=== PATIENT | male | born 1970 | race Caucasian/White ===

== ENCOUNTER 2022-08-30 13:15 | Emergency (ER) | payer OTHER ==
[2022-08-30] MEDS ORDERED: Iopamidol 612 MG/ML 100 ML Bottle IV ONE (14:50)
[2022-09-24 11:00] LABS: ANION GAP 8.7 meq/L (7-15); CHLORIDE,CL 101 mmol/L (98-107); ESTIMATED GFR 93 mL/min (>=60); SODIUM,NA 139 mmol/L (136-145)
== END 2022-08-30 15:20 | disposition home or self-care (01) ==
LOC: LL.ED 13:15
DX: H93.8X1 Other specified disorders of right ear (principal); R21 Rash and other nonspecific skin eruption
CPT/HCPCS: 36415; 70491; 80053; 83735; 85025; 99283; 99284; Q9967

== ENCOUNTER 2023-03-18 10:17 | Emergency (ER) | payer MEDICARE, OTHER ==
[2023-03-18] MEDS ORDERED: Lidocaine 2% 5 ML SDV INJECT ONE ×2 (10:26→10:41)
[2023-03-18] MEDS ORDERED: Ondansetron 4 MG Tab.DIS PO ONE (10:31)
[2023-03-18] MEDS ORDERED: Bacitracin Oint 1 GM U/D Packet TOP ONE (12:01)
== END 2023-03-18 12:23 | disposition home or self-care (01) ==
LOC: LL.ED 10:17
DX: S61.213A Laceration without foreign body of left middle finger without damage to nail, initial encounter (principal); W26.0XXA Contact with knife, initial encounter
CPT/HCPCS: 12002; 73140-F1; 99283; A9270-GY; J3490